=== PATIENT | male | born 1985 | race Caucasian/White ===

== ENCOUNTER → 2017-08-06 | Outpatient (CLI) | payer OTHER ==
--- NOTE | 2017-08-06 19:09 | DIAGNOSTIC IMAGING REPORT ---
CHEST 2 VIEWS ROUTINE HISTORY: Cough. Fever. COMPARISON: None. FINDINGS: No pneumothorax. No pleural effusions. The heart is normal in size. Mild diffuse reticulonodular interstitial thickening with patchy bibasilar hazy airspace opacities. There are 2 adjacent thin linear metallic foreign bodies in the region of the left axilla. These measure 2.2 and 2.5 cm in length. These appear to represent needle fragments. IMPRESSION: 1. Mild diffuse reticulonodular interstitial thickening with patchy bibasilar hazy airspace opacities. This is consistent with a pneumonia. Recommend follow-up to ensure resolution. 2. There are 2 adjacent thin linear metallic foreign bodies in the region of the left axilla. These measure 2.2 and 2.5 cm in length. These appear to represent needle fragments. Clinical correlation recommended. These could be on the patient's overlapping clothes. Electronically signed by: Ahmet Al M.D. 08/06/2017 7:08 PM Dictated Date/Time: 08/06/2017 7:05 PM
== END | disposition home or self-care (01) ==
LOC: C.RAD 18:32
PROVIDERS: ATTEND Physician Assistant Surgical
DX: J18.9 Pneumonia, unspecified organism (principal)